=== PATIENT | female | born 1985 | race American Indian/Alaskan Native ===

== ENCOUNTER 2018-07-21 16:17 | Outpatient (CLI) | payer OTHER | END 2018-07-21 18:19 | disposition still patient (30) | LOC: NST 16:17 | DX: Z34.82 Encounter for supervision of other normal pregnancy, second trimester (principal) ==

== ENCOUNTER 2018-09-21 15:29 | Outpatient (CLI) | payer OTHER | END 2018-09-21 16:00 | disposition home or self-care (01) | LOC: NST 15:29 | DX: Z34.83 Encounter for supervision of other normal pregnancy, third trimester (principal) ==

== ENCOUNTER 2018-10-10 13:45 | Inpatient (IN) | payer OTHER ==
[~2018-10-10] VITALS: Ht 152.4 cm; Wt 3.6 kg
[2018-10-22] MEDS ORDERED: PRENATABS RX T1 EACH PO (05:56)
== END 2018-10-25 12:29 | DRG 788 ==
LOC: LDR 10-22 05:46 → OB/GYN 10-22 05:46
PROVIDERS: Obstetrics & Gynecology; ADMIT Obstetrics & Gynecology Maternal & Fetal Medicine
PROC: 0UN70ZZ Release Bilateral Fallopian Tubes, Open Approach (ICD-10-PCS; 2018-10-22)
PROC: 0UN20ZZ Release Bilateral Ovaries, Open Approach (ICD-10-PCS; 2018-10-22)
PROC: 4A1HXCZ Monitoring of Products of Conception, Cardiac Rate, External Approach (ICD-10-PCS; 2018-10-22)
PROC: 4A033R1 Measurement of Arterial Saturation, Peripheral, Percutaneous Approach (ICD-10-PCS; 2018-10-22)
PROC: 10D00Z1 Extraction of Products of Conception, Low, Open Approach (ICD-10-PCS; principal; 2018-10-22 13:00)
DX: O33.8 Maternal care for disproportion of other origin (principal); O26.893 Other specified pregnancy related conditions, third trimester; N73.6 Female pelvic peritoneal adhesions (postinfective); Z3A.39 39 weeks gestation of pregnancy; Z37.0 Single live birth